=== PATIENT | female | born 1995 | race Caucasian/White ===

== ENCOUNTER 2018-05-02 19:29 | Emergency (ER) | payer OTHER ==
[2018-05-02 20:02] VITALS: BP 129/79
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
[2018-05-02] MEDS ORDERED: Cyclobenzaprine TAB* 10 MG PO ONE (21:37)
[2018-05-02] MEDS ORDERED: Ibuprofen TAB* 600 MG PO ONE (21:40)
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
== END 2018-05-02 21:51 | disposition home or self-care (01) ==
LOC: UCCORT 19:29
DX: S13.4XXA Sprain of ligaments of cervical spine, initial encounter (principal); S80.12XA Contusion of left lower leg, initial encounter; V49.9XXA Car occupant (driver) (passenger) injured in unspecified traffic accident, initial encounter; Y93.89 Activity, other specified; Y92.9 Unspecified place or not applicable; Z88.0 Allergy status to penicillin; F17.210 Nicotine dependence, cigarettes, uncomplicated
CPT/HCPCS: 72020; 72050; 99212; A9270-GY; G0463

== ENCOUNTER 2018-05-04 10:24 | Emergency (ER) | payer OTHER ==
[2018-05-04 11:12] VITALS: BP 127/81
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
== END 2018-05-04 11:33 | disposition home or self-care (01) ==
LOC: UCCORT 10:24
DX: S13.9XXA Sprain of joints and ligaments of unspecified parts of neck, initial encounter (principal); V89.2XXA Person injured in unspecified motor-vehicle accident, traffic, initial encounter; Y92.410 Unspecified street and highway as the place of occurrence of the external cause; F17.210 Nicotine dependence, cigarettes, uncomplicated; Z88.0 Allergy status to penicillin
CPT/HCPCS: 99211; G0463